=== PATIENT | male | born 1945 | race Caucasian/White ===

== ENCOUNTER 2019-07-16 16:56 | Emergency (ER) | payer MEDICARE, MEDICAID ==
[~2019-07-16] VITALS: Ht 167.6 cm; Wt 112.0 kg
[~2019-07-16 16:56] MED LIST: BUSP15TA4 PO; ENAL20TA77 PO; ESOM40CA2 PO; FENO145T36 PO; FERR325T28 PO; FLUT16SP2 NS; GABA-338 PO; GLIP-126 PO; HYDR-3972 PO; INSU100V15 SQ; ISOS60TA4 PO; SERT-128 PO; TAMS0.4C32 PO; TRAZ-89 PO; [UNRECOGNIZED DRUG - CODE] PO
--- NOTE | 2019-07-16 17:36 | NUR ---
PT TO CT VIA [facility], WITH LARRY CAM
[2019-07-16 18:19] LABS: BASOPHILS % (AUTO) 0.5 % (0-1); EOSINOPHILS # (AUTO) 0.1 X10'3 (0-0.9); EOSINOPHILS % (AUTO) 2.5 % (0-6); HEMOGLOBIN 11.1 g/dl (14.0-17.9); LYMPHOCYTES # (AUTO) 1.1 X10'3 (1.1-4.8); LYMPHOCYTES % (AUTO) 28.1 % (21-51); MEAN CORPUSCULAR HEMOGLOBIN 29.7 PG (27.0-31.0); MEAN CORPUSCULAR HGB CONC 33.6 g/dL (33.0-36.5); MEAN CORPUSCULAR VOLUME 88.6 FL (78-98); MEAN PLATELET VOLUME 7.8 FL (7.4-10.4); MONOCYTES # (AUTO) 0.3 X10'3 (0-0.9); MONOCYTES % (AUTO) 6.5 % (2-12); NEUTROPHILS # (AUTO) 2.5 X10'3 (1.8-7.7); NEUTROPHILS % (AUTO) 62.4 % (42-75); PLATELET COUNT 183 X10'3 (140-440); RED BLOOD COUNT 3.72 X10'6 (4.70-6.10); RED CELL DISTRIBUTION WIDTH 14.2 % (11.5-14.5); WHITE BLOOD COUNT 3.9 X10'3 (4.5-11.0)
[2019-07-16 18:20] LABS: ALBUMIN 4.3 G/DL (3.4-5.0); ANION GAP 6 (8-16); BLOOD UREA NITROGEN 25 MG/DL (7-18); BUN/CREATININE RATIO 14.2 (5.4-32.0); CALCIUM 9.6 MG/DL (8.5-10.1); CHLORIDE 105 MMOL/L (99-107); CREATININE 1.76 MG/DL (0.60-1.10); GLUCOSE 88 MG/DL (70-104); POTASSIUM 4.4 MMOL/L (3.5-5.1); SODIUM 141 MMOL/L (135-145); TOTAL CARBON DIOXIDE 29.6 MMOL/L (24-32); eGFR 38 ML/MIN
[2019-07-16 18:24] LABS: PARTIAL THROMBOPLASTIN TIME 26 SECONDS (22-32)
--- NOTE | 2019-07-16 18:36 | NUR ---
VALERY JIMÉNEZ AT BEDSIDE SUTURING THE LAC TO THE FACE. VERBAL RECEIVED FOR TORADOL 15 MG IV X1 NOW. BP 171/88.
[2019-07-16] MEDS ORDERED: ketorolac trometh. 30mg/ml inj. IV ONE (18:40)
[2019-07-16] MEDS ORDERED: HYDR-3965 PO (19:18)
[2019-07-16 19:49] VITALS: BP 147/83
== END 2019-07-16 19:54 | disposition home or self-care (01) ==
LOC: ER 16:56
DX: S01.81XA Laceration without foreign body of other part of head, initial encounter (principal); S02.2XXA Fracture of nasal bones, initial encounter for closed fracture; I11.0 Hypertensive heart disease with heart failure; I50.9 Heart failure, unspecified; J45.909 Unspecified asthma, uncomplicated; G47.30 Sleep apnea, unspecified; E11.9 Type 2 diabetes mellitus without complications; E03.9 Hypothyroidism, unspecified; M19.90 Unspecified osteoarthritis, unspecified site; Z86.73 Personal history of transient ischemic attack (TIA), and cerebral infarction without residual deficits; Z79.4 Long term (current) use of insulin; Z79.899 Other long term (current) drug therapy; W18.39XA Other fall on same level, initial encounter; Y93.01 Activity, walking, marching and hiking; Y92.89 Other specified places as the place of occurrence of the external cause; Y99.8 Other external cause status
CPT/HCPCS: 36415; 70450; 70486; 72125; 80048; 85025; 85610; 85730; 96374; 99284; J1885

== ENCOUNTER 2020-12-09 10:37 | Day surgery (SDC) | payer MEDICARE, MEDICAID ==
[~2020-12-09] VITALS: Ht 170.2 cm; Wt 106.9 kg
[2020-12-09] VITALS (9 sets, daily range): BP systolic 118–139; BP diastolic 53–72
[~2020-12-09 10:37] MED LIST changes: +FENO145T26 PO; -FENO145T36 PO; -ISOS60TA4 PO; +ISOS60TA71 PO
[2020-12-09] MEDS ORDERED: diphenhydrAMINE 25mg capsule PO PRN (11:05)
[2020-12-09] MEDS ORDERED: normal saline 1,000 ML IV SCH (11:05)
[2020-12-09] MEDS ORDERED: IOHEXOL 350 MG/ML INFUS..BTL 75ML IV ONE (11:32)
[2020-12-09] MEDS ORDERED: heparin 1,000unit/ml 10ml vial 10 ML ONE (11:32)
[2020-12-09] MEDS ORDERED: heparin 1,000 UNITS/NS 500ml 500 ML ONE ×2 (11:32)
[2020-12-09] MEDS ORDERED: iohexol 350MG/ML 100ml bottle IV ONE (11:32)
[2020-12-09] MEDS ORDERED: LIDOcaine 1% (10mg/ml)w/preservative injection 20ml MDV ONE (11:32)
[2020-12-09] MEDS ORDERED: midazolam 1 mg/ML 2ml injection ONE ×2 (11:32→12:48)
[2020-12-09] MEDS ORDERED: fentaNYL/PF 50MCG/1 ML 2ML syringe ONE (11:32)
[2020-12-09 11:51] LABS: BASOPHILS % (AUTO) 1.1 % (0-1); EOSINOPHILS # (AUTO) 0.2 X10'3 (0-0.9); EOSINOPHILS % (AUTO) 5.5 % (0-6); HEMATOCRIT 31.5 % (42.0-52.0); HEMOGLOBIN 10.4 g/dl (14.0-17.9); LYMPHOCYTES # (AUTO) 0.9 X10'3 (1.1-4.8); LYMPHOCYTES % (AUTO) 29.1 % (21-51); MEAN CORPUSCULAR HEMOGLOBIN 28.5 PG (27.0-31.0); MEAN CORPUSCULAR VOLUME 86.4 FL (78-98); MEAN PLATELET VOLUME 7.1 FL (7.4-10.4); MONOCYTES # (AUTO) 0.3 X10'3 (0-0.9); MONOCYTES % (AUTO) 8.9 % (2-12); NEUTROPHILS # (AUTO) 1.7 X10'3 (1.8-7.7); NEUTROPHILS % (AUTO) 55.4 % (42-75); PLATELET COUNT 165 X10'3 (140-440); RED BLOOD COUNT 3.65 X10'6 (4.70-6.10); RED CELL DISTRIBUTION WIDTH 13.9 % (11.5-14.5)
[2020-12-09] MEDS ORDERED: PSYL0.4C2 PO (11:51)
[2020-12-09] MEDS ORDERED: ALBU8HFA PO (11:51)
[2020-12-09] MEDS ORDERED: DOCU-148 PO (11:51)
[2020-12-09] MEDS ORDERED: FENO145T38 PO (11:51)
[2020-12-09] MEDS ORDERED: LORA10CA PO (11:51)
[2020-12-09] MEDS ORDERED: ENAL2.5T40 PO (11:51)
[2020-12-09] MEDS ORDERED: ASPI-1265 PO (11:51)
[2020-12-09] MEDS ORDERED: NITR0.4T48 SL (11:51)
[2020-12-09] MEDS ORDERED: CICL15CR13 TOP (12:01)
[2020-12-09] MEDS ORDERED: FENT-90 TOP (12:01)
[2020-12-09] MEDS ORDERED: ATOR80TA PO (12:01)
[2020-12-09] MEDS ORDERED: CALC950T2 (12:01)
[2020-12-09] MEDS ORDERED: MULT-1085 PO (12:01)
[2020-12-09] MEDS ORDERED: GABA300C PO (12:01)
[2020-12-09] MEDS ORDERED: PANT-47 PO (12:01)
[2020-12-09] MEDS ORDERED: VITC500T PO (12:01)
[2020-12-09 12:08] LABS: ALBUMIN 3.6 G/DL (3.4-5.0); ANION GAP 6 (8-16); BLOOD UREA NITROGEN 37 MG/DL (7-18); BUN/CREATININE RATIO 19.8 (5.4-32.0); CALCIUM 9.4 MG/DL (8.5-10.1); CHLORIDE 104 MMOL/L (99-107); CREATININE 1.87 MG/DL (0.60-1.10); GLUCOSE 119 MG/DL (70-104); MAGNESIUM 1.7 MG/DL (1.5-2.4); POTASSIUM 4.8 MMOL/L (3.5-5.1); SODIUM 138 MMOL/L (135-145); TOTAL CARBON DIOXIDE 28.3 MMOL/L (24-32); eGFR 35 ML/MIN
[2020-12-09] MEDS ORDERED: LACT1CAP92 PO (12:10)
[2020-12-09] MEDS ORDERED: CHOL10006 PO (12:10)
[2020-12-09] MEDS ORDERED: IMIQ1CRE9 TOP (12:10)
[2020-12-09] MEDS ORDERED: DICL100G15 TOP (12:10)
[2020-12-09] MEDS ORDERED: CALC500T11 PO (12:11)
[2020-12-09] MEDS ORDERED: ACET-1025 PO (12:11)
[2020-12-09] MEDS ORDERED: GUAI400T92 PO (12:11)
[2020-12-09] MEDS ORDERED: LIRA0.6P SQ (12:11)
[2020-12-09] MEDS ORDERED: DONE5TAB7 PO (12:11)
[2020-12-09] MEDS ORDERED: DIPH-689 PO (12:18)
[2020-12-09] MEDS ORDERED: OXCA300T4 PO (12:18)
[2020-12-09] MEDS ORDERED: ondansetron/PF 4mg/2ml inj IV PRN (14:05)
[2020-12-09] MEDS ORDERED: normal saline 1000ml 1,000 ML IV SCH (14:05)
[2020-12-09] MEDS ORDERED: HYDROcodone/acetaminophen 10/325mg tab PO PRN (14:05)
[2020-12-09] MEDS ORDERED: proCHLORperazine 10 MG/2 ml inj IV PRN (14:05)
[2020-12-09] MEDS ORDERED: HYDROcodone/acetaminophen 5mg/325mg tablet PO PRN (14:05)
[2020-12-09] MEDS ORDERED: bumetanide 1mg tablet PO ONE (14:30)
== END 2020-12-09 16:30 | disposition home or self-care (01) ==
LOC: SSTAY O 10:37
PROVIDERS: ATTEND Internal Medicine Cardiovascular Disease
DX: R94.39 Abnormal result of other cardiovascular function study (principal); R07.89 Other chest pain; E11.22 Type 2 diabetes mellitus with diabetic chronic kidney disease; I12.9 Hypertensive chronic kidney disease with stage 1 through stage 4 chronic kidney disease, or unspecified chronic kidney disease; N18.4 Chronic kidney disease, stage 4 (severe); G47.30 Sleep apnea, unspecified; D64.9 Anemia, unspecified; E78.5 Hyperlipidemia, unspecified; Z86.73 Personal history of transient ischemic attack (TIA), and cerebral infarction without residual deficits; Z79.899 Other long term (current) drug therapy; Z79.84 Long term (current) use of oral hypoglycemic drugs
CPT/HCPCS: 36415; 80048; 82948; 83735; 85025; 85610; 93005; 93458; 99152; C1760; C1769; C1894; J1644; J2001; J2250; J3010; J7030; Q0163; Q9967; A4620; A6258

== ENCOUNTER 2022-02-06 06:50 | Day surgery (SDC) | payer MEDICARE, MEDICAID ==
[2022-01-30 16:21] LABS: BASOPHILS % (AUTO) 1.1 % (0-1); EOSINOPHILS # (AUTO) 0.1 X10'3 (0-0.9); LYMPHOCYTES # (AUTO) 1.1 X10'3 (1.1-4.8); LYMPHOCYTES % (AUTO) 28.9 % (21-51); MEAN CORPUSCULAR HEMOGLOBIN 28.4 PG (27.0-31.0); MEAN CORPUSCULAR HGB CONC 32.7 g/dL (33.0-36.5); MEAN CORPUSCULAR VOLUME 86.9 FL (78-98); MEAN PLATELET VOLUME 7.1 FL (7.4-10.4); MONOCYTES # (AUTO) 0.2 X10'3 (0-0.9); MONOCYTES % (AUTO) 6.5 % (2-12); NEUTROPHILS # (AUTO) 2.3 X10'3 (1.8-7.7); NEUTROPHILS % (AUTO) 60.5 % (42-75); PRE OP HEMATOCRIT 32.5 % (42.0-52.0); PRE OP PLATELET COUNT 166 X10'3 (140-440); RED BLOOD COUNT 3.74 X10'6 (4.70-6.10); RED CELL DISTRIBUTION WIDTH 14.3 % (11.5-14.5)
[2022-01-30 16:22] LABS: PRE OP HEMOGLOBIN 10.6 g/dL (14.0-17.9)
[2022-01-30 16:27] LABS: ALBUMIN 3.6 G/DL (3.4-5.0); ALBUMIN/GLOBULIN RATIO 1.1 (1.1-1.5); ALKALINE PHOSPHATASE 34 IU/L (46-116); BLOOD UREA NITROGEN 27 MG/DL (7-18); BUN/CREATININE RATIO 16.2 (5.4-32.0); CALCIUM 9.2 MG/DL (8.5-10.1); CHLORIDE 103 MMOL/L (99-107); CREATININE 1.67 MG/DL (0.60-1.10); PRE OP ALT 24 U/L (30-65); PRE OP ANION GAP 7 (8-16); PRE OP AST 21 U/L (10-37); PRE OP BILIRUB, TOTAL 0.3 MG/DL (0.0-1.0); PRE OP POTASSIUM 4.2 MMOL/L (3.4-5.1); PRE OP SODIUM 139 MMOL/L (135-145); TOTAL CARBON DIOXIDE 28.7 MMOL/L (24-32); TOTAL PROTEIN 6.9 G/DL (6.4-8.2); eGFR 40 ML/MIN
[2022-01-30 16:30] LABS: PRE OP GLUCOSE 244 MG/DL (70-104)
[~2022-02-06] VITALS: Ht 170.2 cm; Wt 111.8 kg
[2022-02-06] VITALS (9 sets, daily range): BP systolic 111–148; BP diastolic 66–86
[~2022-02-06 06:50] MED LIST changes: +ATOR80TA PO; +ATOR80TA13 PO; +BUDE10.2 INH; +BUPIVAcaine/PF 7.5mg/ml (0.75%) 10ml vial ONE; +CALC950T2 PO; +CHOL10006 PO; +DIPH-689 PO; +ENAL2.5T40 PO; -ENAL20TA77 PO; -ESOM40CA2 PO; +EZET10TA6 PO; -FENO145T26 PO; +FENO145T38 PO; +FENT-90 TOP; -FLUT16SP2 NS; -GABA-338 PO; +GABA300C PO; -GLIP-126 PO; -HYDR-3972 PO; +LIRA0.6P SQ; +MULT-1085 PO; +OXYB5TAB29 PO; +VITC500T PO; +albuterol 2.5 MG/3 ML nebule NEB PRN; +famotidine 20mg tablet PO ONE; +ringers solution, lacted 1,000 ML IV SCH
[2022-02-06] MEDS ORDERED: LIDOcaine 0.5% (5mg/ml) 50ml vial ONE (07:02)
[2022-02-06] MEDS ORDERED: enalaprilat dihydrate 2.5mg/2ml vial IV PRN (07:25)
[2022-02-06] MEDS ORDERED: morphine 4 MG/ML inj SYRINge IV PRN (07:25)
[2022-02-06] MEDS ORDERED: ringers solution, lacted 1,000 ML IV SCH (07:25)
[2022-02-06] MEDS ORDERED: morphine 2 MG/ML inj. syringe IV PRN (07:25)
[2022-02-06] MEDS ORDERED: fentaNYL/PF 50MCG/1 ML 2ML syringe IV PRN ×2 (07:25)
[2022-02-06] MEDS ORDERED: ondansetron/PF 4mg/2ml inj IV PRN (07:25)
[2022-02-06] MEDS ORDERED: labetalol 20mg/4ml (5mg/ml) syringe IV PRN (07:25)
[2022-02-06] MEDS ORDERED: CEPH250T PO (08:02)
[2022-02-06] MEDS ORDERED: LIDOcaine 1% 30ml preserv. free vial ONE (08:39)
[2022-02-06] MEDS ORDERED: midazolam 1 mg/ML 2ml injection ONE (08:40)
--- NOTE | 2022-02-06 09:31 | NUR ---
Received from OR via [facility], accompanied by Anesthesiologist DR YOON and report given by Anesthesiolgist. PT PRESENTS WITH PIV 20G LEFT HAND, RIGHT HAND DRESSING CCRI, VSS. Addendum: 02/06/22 at 0942 by Chantelle Holloway RN, RN Amended: Links added.
--- NOTE | 2022-02-06 10:47 | NUR ---
I HAVE REVIEWED D/C INSTRUCTIONS WITH PATIENT AND THEY HAVE VERBALIZED UNDERSTANDING OF INSTRUCTIONS. PATIENT D/C HOME WITH ALL BELONGINGS AND FAMILY GAVE TRANSPORT Addendum: 02/06/22 at 1134 by Chantelle Holloway RN, RN Amended: Links added.
== END 2022-02-06 10:41 | disposition home or self-care (01) ==
LOC: PAS 06:50
PROVIDERS: ATTEND Orthopaedic Surgery Hand Surgery
DX: M65.351 Trigger finger, right little finger (principal); M65.331 Trigger finger, right middle finger; J45.909 Unspecified asthma, uncomplicated; G47.30 Sleep apnea, unspecified; E11.22 Type 2 diabetes mellitus with diabetic chronic kidney disease; I13.0 Hypertensive heart and chronic kidney disease with heart failure and stage 1 through stage 4 chronic kidney disease, or unspecified chronic kidney disease; N18.9 Chronic kidney disease, unspecified; I50.9 Heart failure, unspecified; M19.90 Unspecified osteoarthritis, unspecified site; N40.0 Benign prostatic hyperplasia without lower urinary tract symptoms; F32.A Depression, unspecified; E66.9 Obesity, unspecified; Z68.37 Body mass index [BMI] 37.0-37.9, adult; Z79.4 Long term (current) use of insulin; Z79.899 Other long term (current) drug therapy
CPT/HCPCS: 26055; 36415; 71046; 80053; 82948; 85025; J0690; J2250; J3490; J7030; J7060; J7120; Z7506; Z7512; A4215; A4618; A6449

== ENCOUNTER 2024-09-29 11:36 | Outpatient (CLI) | payer MEDICARE, MEDICAID ==
[~2024-09-29 11:36] MED LIST changes: -ATOR80TA PO; -BUPIVAcaine/PF 7.5mg/ml (0.75%) 10ml vial ONE; +CEPH250T PO; -albuterol 2.5 MG/3 ML nebule NEB PRN; -famotidine 20mg tablet PO ONE; -ringers solution, lacted 1,000 ML IV SCH
== END 2024-09-29 23:59 | disposition home or self-care (01) ==
LOC: RAD 11:36
PROVIDERS: ATTEND Family Medicine
DX: R13.10 Dysphagia, unspecified (principal); R47.02 Dysphasia; Z79.899 Other long term (current) drug therapy
CPT/HCPCS: 74230

== ENCOUNTER 2024-12-28 11:55 | Emergency (ER) | payer MEDICARE, MEDICAID ==
[~2024-12-28] VITALS: Ht 167.6 cm; Wt 104.5 kg
[2024-12-28 11:56] VITALS: BP 105/48; PULSE 60; RESP 15; O2SAT 95
[2024-12-28] MEDS: normal saline 1000ml 1,000 ML IV ONE (13:23)
[2024-12-28] MEDS: bacitracin 15gm ointment TP STA (13:49)
[2024-12-28] MEDS ORDERED: MECL-302 PO (15:05)
[2024-12-28 15:12] VITALS: TEMP 97.7
== END 2024-12-28 15:15 | disposition home or self-care (01) ==
LOC: ER 11:55
DX: S50.12XA Contusion of left forearm, initial encounter (principal); R11.2 Nausea with vomiting, unspecified; E86.0 Dehydration; E03.9 Hypothyroidism, unspecified; E11.9 Type 2 diabetes mellitus without complications; G47.30 Sleep apnea, unspecified; I11.0 Hypertensive heart disease with heart failure; I50.9 Heart failure, unspecified; J45.909 Unspecified asthma, uncomplicated; M19.90 Unspecified osteoarthritis, unspecified site; Z85.820 Personal history of malignant melanoma of skin; Z86.73 Personal history of transient ischemic attack (TIA), and cerebral infarction without residual deficits; W18.30XA Fall on same level, unspecified, initial encounter; Y93.89 Activity, other specified; Y92.89 Other specified places as the place of occurrence of the external cause; Y99.8 Other external cause status
CPT/HCPCS: 96360; 99283; J7030

== ENCOUNTER → 2025-01-11 | Outpatient (CLI) | payer MEDICARE, MEDICAID ==
[~2025-01-11] MED LIST changes: +MECL-302 PO
--- NOTE | 2025-01-11 10:59 | RADIOLOGY REPORT ---
EXAM: CT CT HEAD; DATE: 01/11/2025 10:14 AM HISTORY: GAIT DISTURBANCE COMPARISON: None TECHNIQUE: Axial images were obtained and reformatted in coronal and sagittal planes. All CT scans at this medical facility are performed using dose modulation techniques as appropriate to a performed e xam including the following: Automated exposure control was utilized; adjustment of the MA and/or KV according to patient size; and use of iterative reconstruction technique. CT Dose: CTDI volume is 70 mGy. Dose-length product is 12 90 mGy*cm FINDINGS: Supratentorial Region: No evidence for large acute territorial ischemia. No intracranial hemorrhage is noted. Confluent white matter hypoattenuating foci are noted bilaterally, which typically reflect chronic microvascular ischemic changes. Posterior Fossa: A 1 cm density seen in the right cerebellar lobe subcortical white matter without va sogenic edema or mass effect that may represent dystrophic calcification or hemorrhage. Brainstem: Unremarkable. Sellar/Suprasellar Region: Unremarkable. Ventricles, Cisterns, Sulci: Age-appropriate. Orbits: Unremarkable. Paranasal Sinuses: Unremarkable. Mastoid Air Cells: Unremarkable. Vasculature: Unremarkable. Bones/Soft Tissues: No acute abnormality. Other: None. IMPRESSION: 1. A 1 cm density seen in the right cerebral subcortical white matter without vasogenic edema or mass effect that may represent chronic dystrophic calcification or parenchymal hemorrhage. Recommend gris elation with focal findings further evaluated with MRI or follow-up by CT scan in 6-8 hours to ensure no progression. No prior studies available for comparison. 2. Mild global cortical atrophy and moderate chronic microvascular ischemic changes. We have been trying to get in touch with referring clinician for the past 15 minutes and there has be en no success. .
--- NOTE | 2025-01-11 12:13 | RADIOLOGY REPORT ---
EXAM: CT CT CERVICAL SPINE INDICATION: GAIT DISTURBANCE EXAM DATE: 01/11/2025 10:16 AM COMPARISON: None TECHNIQUE: Multiple axial CT images of the cervical spine were obtained using bone algorithm. Sagitta l and coronal reformatting was done. Bone and soft tissue windows were reviewed. Radiation Dose Information: CT Dose: CTDI volume is 29.6 mGy. Dose-length product is 712.8 mGy*cm FINDINGS: The cervical alignment is intact. Reversal of the cervical lordosis. There is a neurostimulator in t he thecal sac extending from the posterior aspect of the C2 to the C6 level. No acute cervical spine fracture is identified. The vertebral body heights are intact. No suspicious osseous lesions are iden tified. Multilevel intervertebral disc space narrowing. No significant spinal stenosis. Multilevel neural fo raminal stenosis. There is no prevertebral soft tissue swelling. Calcification in the left pinna. Visualized lung apices are clear. IMPRESSION: 1. No evidence of acute cervical spine fracture or traumatic malalignment. All CT scans at this medical facility are performed using dose modulation techniques as appropriate t o a performed exam including the following: Automated exposure control was utilized; adjustment of th e MA and/or KV according to patient size; and use of iterative reconstruction technique.
== END | disposition home or self-care (01) ==
LOC: RAD 09:59
PROVIDERS: ATTEND Neuromusculoskeletal Medicine & OMM
DX: I67.82 Cerebral ischemia (principal); M48.02 Spinal stenosis, cervical region; R90.82 White matter disease, unspecified; G31.9 Degenerative disease of nervous system, unspecified; R26.9 Unspecified abnormalities of gait and mobility
CPT/HCPCS: 70450; 72125

== ENCOUNTER 2025-01-18 16:44 | Emergency (ER) | payer MEDICARE, MEDICAID ==
--- NOTE | 2025-01-18 16:59 | ELECTROCARDIOGRAPH REPORT ---
[facility] Test Date: 2025-01-18 Test Time: 16:57:04 Pat Name: DOYLE VELASCO Department: [facility]- Patient ID: [facility]-[id number] Room: Gender: M Home Theatre Technician: : 1945 Requested By: JOSEPH DISLA Order Number: [id number] Reading MD: Dr. Dhiraj Khan Measurements Intervals [place] Rate: 76 P: 0 WI: 0 QRS: 18 QRSD: 115 T: 86 QT: 400 QTc: 450 Interpretive Statements Atrial fibrillation Right bundle branch block Low voltage, precordial leads Nonspecific T abnormalities, lateral leads Artifact in lead(s) I and baseline wander in lead(s) V4,V5,V6 Electronically Signed On 01-18-2025 20:38:[address] Dhiraj Khan Please click the below link to view image of tracing.
[2025-01-18 17:12] LABS: BASOPHILS % (AUTO) 0.7 % (0-1); EOSINOPHILS # (AUTO) 0.1 X10'3 (0-0.9); EOSINOPHILS % (AUTO) 1.3 % (0-6); HEMATOCRIT 32.8 % (42.0-52.0); HEMOGLOBIN 11.1 g/dl (14.0-17.9); LYMPHOCYTES # (AUTO) 1.3 X10'3 (1.1-4.8); LYMPHOCYTES % (AUTO) 28.2 % (21-51); MEAN CORPUSCULAR HGB CONC 33.8 g/dL (33.0-36.5); MEAN CORPUSCULAR VOLUME 82.9 FL (78-98); MEAN PLATELET VOLUME 6.8 FL (7.4-10.4); MONOCYTES # (AUTO) 0.3 X10'3 (0-0.9); MONOCYTES % (AUTO) 6.8 % (2-12); NEUTROPHILS # (AUTO) 2.9 X10'3 (1.8-7.7); PLATELET COUNT 247 X10'3 (140-440); RED BLOOD COUNT 3.96 X10'6 (4.70-6.10); RED CELL DISTRIBUTION WIDTH 15.2 % (11.5-14.5); WHITE BLOOD COUNT 4.6 X10'3 (4.5-11.0)
[2025-01-18 17:27] LABS: ALANINE AMINOTRANSFERASE 33 U/L (12-78); ALBUMIN 3.5 G/DL (3.4-5.0); ALBUMIN/GLOBULIN RATIO 1.1 (1.1-1.5); ALKALINE PHOSPHATASE 28 IU/L (46-116); ANION GAP 4 (8-16); ASPARTATE AMINO TRANSFERASE 30 U/L (10-37); BILIRUBIN,TOTAL 0.3 MG/DL (0.1-1.0); BLOOD UREA NITROGEN 22 MG/DL (7-18); BUN/CREATININE RATIO 15.3 (10.0-20.0); CALCIUM 8.7 MG/DL (8.5-10.1); CHLORIDE 94 MMOL/L (99-107); CREATININE 1.44 MG/DL (0.60-1.10); GLUCOSE 162 MG/DL (70-104); POTASSIUM 4.1 MMOL/L (3.5-5.1); SODIUM 127 MMOL/L (135-145); TOTAL PROTEIN 6.6 G/DL (6.4-8.2); eGFR 47 ML/MIN
--- NOTE | 2025-01-18 17:28 | RADIOLOGY REPORT ---
CLINICAL INDICATION: ANKLE PAIN TECHNIQUE: DI ANKLE, COMPLETE(3VW MIN) Comparison: None FINDINGS/IMPRESSION: : Comminuted and minimally displaced fracture of the distal fibula with intra-articular extension. Ankle mortise is intact. Diffuse soft-tissue swelling. Vascular calcifications are present.
--- NOTE | 2025-01-18 17:29 | RADIOLOGY REPORT ---
CHEST RADIOGRAPH Indication: CP Technique: Single frontal view of the chest was obtained COMPARISON: None FINDINGS: Lines and Tubes: None Lungs: Clear Pleura: No effusion. No pneumothorax. Cardiomediastinal contours: Unremarkable Bones: Unremarkable IMPRESSION: No acute disease.
[2025-01-18 17:34] LABS: PRO BRAIN NATRIURETIC PEPTIDE 777 PG/ML (0-450)
--- NOTE | 2025-01-18 19:49 | Physician Documentation ---
History of Present Illness ~ Chief Complaint: Mechanical Fall Stated Complaint: FALL Time Seen by MD: 17:28 Primary Medical Doctor: SASKIA KWONG Patient is seen today with complaints of sustaining a ground level fall where he lost his balance and fell backwards but was luckily caught by his caregiver. There was no head strike and no loss of consciousness. Patient did rolled his left ankle and has left ankle pain. They have no other concern or complaint at this time. Patient currently denies any chest pain or shortness of breath or abdominal pain or nausea, vomiting, diarrhea. Patient does currently have an electric wheelchair at home and uses a walker usually. Patient has history of vertigo. Tetanus within 5 Years?: No (2015) Medication Reconciliation Allergies: Coded Allergies: No Known Allergies (Unverified , 03/30/14) Scheduled Ascorbic Acid* (Vitamin C*), 1 TAB PO DAILY, (Reported) Atorvastatin Calcium (Lipitor), 1 TAB PO DAILY, (Reported) Budesonide/Formoterol Fumarate (Symbicort 160-4.5 Mcg Inhaler), Unknown Dose INH Q12H, (Reported) Buspirone Hcl (Buspirone Hcl), 30 MG PO BID, (Reported) Calcium Citrate (Calcitrate), 1,900 MG PO DAILY, (Reported) Cephalexin*Monohydrate* (Keflex*), 1 CAP PO Q6H, (Reported) Cholecalciferol (Vitamin D), 1 CAP PO DAILY, (Reported) Diphenhydramine Hcl (Zzzquil), 25 MG PO DAILY, (Reported) Enalapril Maleate* (Vasotec*), 1 TAB PO DAILY, (Reported) Ezetimibe (Zetia), 1 TAB PO DAILY, (Reported) Fenofibrate Nanocrystallized* (Tricor*), 145 MG PO DAILY, (Reported) Fentanyl Patch 12 MCG* (Duragesic 12 MCG*), 1 PATCH TOP Q72H, (Reported) Ferrous Sulfate* (Ferrous Sulfate*), 1 TAB PO DAILY, (Reported) Gabapentin (Neurontin), 600 MG PO BID, (Reported) Insulin Glargine,Hum.rec.anlog (Lantus), 40 UNIT SQ HS, (Reported) Isosorbide Mononitrate (Isosorbide Mononitrate Er), 90 MG PO DAILY, (Reported) Liraglutide (Victoza), 1.2 MG SQ HS, (Reported) Meclizine HCl (Meclizine HCl), 1 TAB PO TID PRN, (Reported) Multivitamin (Multi Vitamin Daily), 1 TAB PO DAILY, (Reported) Oxybutynin Chloride (Ditropan Xl), 1 TAB PO DAILY, (Reported) Polyethylene Glycol 3350 (Glycolax), 17 GM PO DAILY, (Reported) Sertraline Hcl (Zoloft), 1.5 TAB PO DAILY, (Reported) Tamsulosin Hcl (Tamsulosin Hcl), 0.8 MG PO HS, (Reported) Trazodone Hcl (Trazodone Hcl), 100 MG PO BID, (Reported) Discontinued Medications Meclizine HCl (Meclizine HCl), 1 TAB PO TID PRN Discontinued Reason: Other Past Medical History Past Medical History: CVA/TIA/Stroke, Congestive Heart Failure, Hypertension, Asthma, Sleep Apnea, Diabetes, Hypothyroidism, Arthritis, Basal Cell, Melanoma Past Surgical History: no surgical history Lives with: Other Lives In: Home Review of Systems Constitutional: Denies: chills, fever, weakness Eyes: Denies: pain, blurred vision ENT: Denies: ear pain, nose pain, throat pain, mouth pain Respiratory: Denies: cough, shortness of breath Cardiovascular: Denies: chest pain, palpitations Gastrointestinal: Denies: abdominal pain, nausea, vomiting Genitourinary: Denies: burning, dysuria Male Genitalia: Denies: penile discharge, testicular pain Neurological: Denies: headache, dizziness Musculoskeletal: Denies: pain, swelling Integumentary: Denies: rash, lesions Allergic/Immunologic: Denies: hives, itching Hematologic/Lymphatic: Denies: no symptoms reported Psychiatric: Denies: depression, anxiety Physical Exam Vital Signs: Temperature: 99.2, Source: Oral, Heart Rate: 68, Respiratory Rate: 16, BP: 117/54, Pulse Oximetry: 97 Oxygen Flow Rate: 0 Physical Exam General: Awake and Alert, no acute distress. HEENT: Conjunctiva pink, Sclera clear, Mucus Membranes moist. Neck: Supple without masses and tenderness. Resp: Unlabored. Lungs clear to auscultation bilaterally. Heart: Regular Rate and rhythm, normal S1 and S2 without murmur, rub or gallop. Musculoskeletal: Patient on exam does have significant tenderness to palpation to the lateral malleoli of the left lower leg. Patient does have swelling and ecchymosis noted. Patient has decreased range of motion due to pain of left ankle. Neurovascularly intact distally. Motor function intact distally. Extremities: No cyanosis,clubbing or edema. Skin: Warm and Dry. Progress Results/Orders Results/Orders Orders - ZAY COLON PAC Ortho Orders (01/18/25 ) Ortho Orders (01/18/25 ) Vital Signs 01/18/25 01/18/25 01/18/25 01/18/25 16:48 20:20 20:26 21:21 Temp 99.2 99.2 Pulse 68 68 65 Resp 16 18 16 B/P (MAP) 117/54 116/59 (78) 113/51 Pulse Ox 97 96 96 O2 Flow Rate 0 0 Laboratory Tests Test 01/18/25 16:59 01/18/25 19:01 White Blood Count 4.6 Red Blood Count 3.96 L Hemoglobin 11.1 L Hematocrit 32.8 L Mean Corpuscular Volume 82.9 Mean Corpuscular Hemoglobin 28.0 Mean Corpuscular Hemoglobin Concent 33.8 Red Cell Distribution Width 15.2 H Platelet Count 247 Mean Platelet Volume 6.8 L Neutrophils (%) (Auto) 63.0 Lymphocytes (%) (Auto) 28.2 Monocytes (%) (Auto) 6.8 Eosinophils (%) (Auto) 1.3 Basophils (%) (Auto) 0.7 Neutrophils # (Auto) 2.9 Lymphocytes # (Auto) 1.3 Monocytes # (Auto) 0.3 Eosinophils # (Auto) 0.1 Basophils # (Auto) 0.0 CBC Comment Sodium Level 127 L Potassium Level 4.1 Chloride Level 94 L Carbon Dioxide Level 29.0 Anion Gap 4 L Blood Urea Nitrogen 22 H Creatinine 1.44 H Estimated GFR/1.73 m2 47 BUN/Creatinine Ratio 15.3 Glucose Level 162 H Calcium Level 8.7 Total Bilirubin 0.3 Aspartate Amino Transf (AST/SGOT) 30 Alanine Aminotransferase (ALT/SGPT) 33 Alkaline Phosphatase 28 L Troponin I High Sensitivity 20 16 Pro-B-Type Natriuretic Peptide 777 H Total Protein 6.6 Albumin 3.5 Globulin 3.1 Albumin/Globulin Ratio 1.1 Chemistry Comments Troponin I High Sens Percent Delta 20 Troponin I Hi Sens Absolute Change -4 EKG/XRAY/CT/US/VASC/MRI Chest X-Ray : Additional Comments Chest x-ray interpreted by myself today shows no large infiltrate, no large effusion, normal mediastinum. DIAGNOSTIC RADIOLOGY Patient: DOYLE VELASCO Medical Record: [id number] [facility] : 1945, Age: 79 Sex: Male Location: ER Patient Status: [facility] ER Service Date/Time: 01/18/251651 Ordering Physician: JOSEPH DISLA MD Exam: CHEST,SINGLE VIEW CHEST RADIOGRAPH Indication: CP Technique: Single frontal view of the chest was obtained COMPARISON: None FINDINGS: Lines and Tubes: None Lungs: Clear Pleura: No effusion. No pneumothorax. Cardiomediastinal contours: Unremarkable Bones: Unremarkable IMPRESSION: No acute disease. Electronically Signed by:PIERO MCLAIN MD Date & Time: 01/18/251725 Dictated by: PIERO MCLAIN MD Dictation date and time: 01/18/251725 Primary Care Provider: NO PRIMARY CARE PROVIDER cc: JOSEPH DISLA MD ~ Bone/Soft Tissue X-Ray (Ext.) : Additional Comment X-ray of left ankle interpreted by myself today does show comminuted, minimally displaced fracture of the left distal fibula with intra-articular extension. The ankle mortise is intact. DIAGNOSTIC RADIOLOGY Patient: DOYLE VELASCO Medical Record: [id number] : 1945, Age: 79 Sex: Male Location: ER Patient Status: REG ER Service Date/Time: 01/18/251651 Ordering Physician: JOSEPH DISLA MD Exam: ANKLE, COMPLETE(3VW MIN) CLINICAL INDICATION: ANKLE PAIN TECHNIQUE: DI ANKLE, COMPLETE(3VW MIN) Comparison: None FINDINGS/IMPRESSION: : Comminuted and minimally displaced fracture of the distal fibula with intra- articular extension. Ankle mortise is intact. Diffuse soft-tissue swelling. Vascular calcifications are present. Electronically Signed by:PIERO MCLAIN MD Date & Time: 01/18/251725 Dictated by: PIERO MCLAIN MD Dictation date and time: 01/18/251725 Primary Care Provider: NO PRIMARY CARE PROVIDER cc: JOSEPH DISLA MD ~ Medical Decision Making Findings Patient is seen today with complaints of sustaining a ground level fall where he lost his balance and fell backwards but was luckily caught by his caregiver. There was no head strike and no loss of consciousness. Patient did rolled his left ankle and has left ankle pain. They have no other concern or complaint at this time. Patient currently denies any chest pain or shortness of breath or abdominal pain or nausea, vomiting, diarrhea. Patient does currently have an electric wheelchair at home and uses a walker usually. Patient has history of vertigo. Patient did have x-ray of left ankle that did show comminuted mildly displaced fracture of the left distal fibula with possible joint involvement. The ankle mortise is intact. I did recommend to patient to follow up with Orthopedics as soon as possible for further eval and treatment. Patient was placed in a walking boot/splint. Patient will return to ED with any worsening, concerning or changing symptoms. Departure Disposition: HOME / SELF CARE / HOMELESS (ERASED) Impression: Primary Impression: Fracture of distal fibula Qualified Codes: S82.832A - Other fracture of upper and lower end of left fibula, initial encounter for closed fracture Condition: Improved Discharge Instructions: Ankle Fracture, [id number], Fall Prevention in the Home, Adult, [id number] Additional Instructions: Patient did have x-ray of left ankle that did show comminuted mildly displaced fracture of the left distal fibula with possible joint involvement. The ankle mortise is intact. I did recommend to patient to follow up with Orthopedics as soon as possible for further eval and treatment. Patient was placed in a walking boot/splint. Patient will return to ED with any worsening, concerning or changing symptoms. Referrals: NO PRIMARY CARE PROVIDER (PCP) Signature Scribe Signature: No scribe Attestation: No scribe ZAY COLON PAC January 18, 2025 19:49
[2025-01-18] MEDS ORDERED: MECL-302 PO (20:18)
[2025-01-18 20:20] VITALS: TEMP 99.2
[2025-01-18 21:21] VITALS: BP 113/51; PULSE 65; RESP 16; O2SAT 96
== END 2025-01-18 21:23 | disposition home or self-care (01) ==
LOC: ER 16:45
DX: S82.832A Other fracture of upper and lower end of left fibula, initial encounter for closed fracture (principal); I11.0 Hypertensive heart disease with heart failure; I50.9 Heart failure, unspecified; E11.9 Type 2 diabetes mellitus without complications; E03.9 Hypothyroidism, unspecified; G47.30 Sleep apnea, unspecified; I48.91 Unspecified atrial fibrillation; J45.909 Unspecified asthma, uncomplicated; M19.90 Unspecified osteoarthritis, unspecified site; Z86.73 Personal history of transient ischemic attack (TIA), and cerebral infarction without residual deficits; Z79.899 Other long term (current) drug therapy; W18.39XA Other fall on same level, initial encounter; Y93.89 Activity, other specified; Y92.89 Other specified places as the place of occurrence of the external cause; Y99.8 Other external cause status
CPT/HCPCS: 36415; 71045; 73610; 80053; 83880; 84484; 85025; 93005; 99285; L4360

== ENCOUNTER 2025-05-14 10:46 | Emergency (ER) | payer MEDICARE, MEDICAID ==
[~2025-05-14] VITALS: Ht 170.2 cm; Wt 107.3 kg
[2025-05-14 10:54] VITALS: TEMP 98.5
[2025-05-14 11:39] LABS: MEAN PLATELET VOLUME 7.6 FL (7.4-10.4); RED CELL DISTRIBUTION WIDTH 14.7 % (11.5-14.5)
[2025-05-14 11:56] LABS: CREATININE 1.43 MG/DL (0.60-1.10); TOTAL CARBON DIOXIDE 28.7 MMOL/L (24-32); eCRCL 38 ML/MIN; eGFR 47 ML/MIN
[2025-05-14 12:03] LABS: PRO BRAIN NATRIURETIC PEPTIDE 2487 PG/ML (0-450)
--- NOTE | 2025-05-14 14:44 | Physician Documentation ---
History of Present Illness ~ Chief Complaint: Extremity Swelling Stated Complaint: LEG PAIN Time Seen by MD: 14:07 Primary Medical Doctor: SASKIA KWONG Mode of Arrival: POV, Ambulatory HPI Patient is seen today with complaints of leg swelling that him and his caregiver have noticed off and on that seems to be getting worse over the last few months. Patient does have a history of congestive heart failure. They state the swelling is in both legs. Patient currently denies any significant shortness of breath or chest pain or abdominal pain or nausea, vomiting, diarrhea. Patient has no new or other concern or complaint at this time. Tetanus witin 5 years: No (2015) Medication Reconciliation Allergies: Coded Allergies: latex (Verified Allergy, Unknown, 05/14/25) Scheduled Ascorbic Acid* (Vitamin C*), 1 TAB PO DAILY, (Reported) Atorvastatin Calcium (Lipitor), 1 TAB PO DAILY, (Reported) Budesonide/Formoterol Fumarate (Symbicort 160-4.5 Mcg Inhaler), Unknown Dose INH Q12H, (Reported) Buspirone Hcl (Buspirone Hcl), 30 MG PO BID, (Reported) Calcium Citrate (Calcitrate), 1,900 MG PO DAILY, (Reported) Cephalexin*Monohydrate* (Keflex*), 1 CAP PO Q6H, (Reported) Cholecalciferol (Vitamin D), 1 CAP PO DAILY, (Reported) Diphenhydramine Hcl (Zzzquil), 25 MG PO DAILY, (Reported) Enalapril Maleate* (Vasotec*), 1 TAB PO DAILY, (Reported) Ezetimibe (Zetia), 1 TAB PO DAILY, (Reported) Fenofibrate Nanocrystallized* (Tricor*), 145 MG PO DAILY, (Reported) Fentanyl Patch 12 MCG* (Duragesic 12 MCG*), 1 PATCH TOP Q72H, (Reported) Ferrous Sulfate* (Ferrous Sulfate*), 1 TAB PO DAILY, (Reported) Gabapentin (Neurontin), 600 MG PO BID, (Reported) Insulin Glargine,Hum.rec.anlog (Lantus), 40 UNIT SQ HS, (Reported) Isosorbide Mononitrate (Isosorbide Mononitrate Er), 90 MG PO DAILY, (Reported) Liraglutide (Victoza), 1.2 MG SQ HS, (Reported) Meclizine HCl (Meclizine HCl), 1 TAB PO TID PRN, (Reported) Multivitamin (Multi Vitamin Daily), 1 TAB PO DAILY, (Reported) Oxybutynin Chloride (Ditropan Xl), 1 TAB PO DAILY, (Reported) Polyethylene Glycol 3350 (Glycolax), 17 GM PO DAILY, (Reported) Sertraline Hcl (Zoloft), 1.5 TAB PO DAILY, (Reported) Tamsulosin Hcl (Tamsulosin Hcl), 0.8 MG PO HS, (Reported) Trazodone Hcl (Trazodone Hcl), 100 MG PO BID, (Reported) Past Medical History Past Medical History: CVA/TIA/Stroke, Congestive Heart Failure, Hypertension, Asthma, Sleep Apnea, Diabetes, Hypothyroidism, Arthritis, Basal Cell, Melanoma Past Surgical History: no surgical history Lives with: Other Lives In: Home Review of Systems Constitutional: Denies: chills, fever, weakness Eyes: Denies: pain, blurred vision ENT: Denies: ear pain, nose pain, throat pain, mouth pain Respiratory: Denies: cough, shortness of breath Cardiovascular: Denies: chest pain, palpitations Gastrointestinal: Denies: abdominal pain, nausea, vomiting Genitourinary: Denies: burning, dysuria Male Genitalia: Denies: penile discharge, testicular pain Neurological: Denies: headache, dizziness Musculoskeletal: Denies: pain, swelling Integumentary: Denies: rash, lesions Allergic/Immunologic: Denies: hives, itching Hematologic/Lymphatic: Denies: no symptoms reported Psychiatric: Denies: depression, anxiety Physical Exam Vital Signs: Temperature: 98.5, Source: Temporal, Heart Rate: 82, Respiratory Rate: 15, BP: 119/69, Pulse Oximetry: 93, Weight: 107.270 Oxygen Flow Rate: 0 Physical Exam General: Awake and Alert, no acute distress. HEENT: Conjunctiva pink, Sclera clear, Mucus Membranes moist. Neck: Supple without masses and tenderness. Resp: Unlabored. Lungs clear to auscultation bilaterally. Heart: Regular Rate and rhythm, normal S1 and S2 without murmur, rub or gallop. Abdomen: Soft and non tender no organomegaly Extremities: No cyanosis,clubbing patient does have 2+ pitting edema of the bilateral lower extremities. Skin: Warm and Dry. Progress Results/Orders Results/Orders Vital Signs 05/14/25 05/14/25 05/14/25 10:54 12:36 12:37 Temp 98.5 Pulse 111 82 Resp 16 16 15 B/P (MAP) 119/69 (86) Pulse Ox 96 93 O2 Flow Rate 0 Laboratory Tests Test 05/14/25 11:25 White Blood Count 3.1 L Red Blood Count 3.73 L Hemoglobin 10.8 L Hematocrit 32.3 L Mean Corpuscular Volume 86.5 Mean Corpuscular Hemoglobin 29.1 Mean Corpuscular Hemoglobin Concent 33.6 Red Cell Distribution Width 14.7 H Platelet Count 138 L Mean Platelet Volume 7.6 Neutrophils (%) (Auto) 65.2 Lymphocytes (%) (Auto) 25.7 Monocytes (%) (Auto) 6.4 Eosinophils (%) (Auto) 2.1 Basophils (%) (Auto) 0.6 Neutrophils # (Auto) 2.0 Lymphocytes # (Auto) 0.8 L Monocytes # (Auto) 0.2 Eosinophils # (Auto) 0.1 Basophils # (Auto) 0.0 CBC Comment Sodium Level 137 Potassium Level 4.5 Chloride Level 101 Carbon Dioxide Level 28.7 Anion Gap 7 L Blood Urea Nitrogen 20 H Creatinine 1.43 H Estimated GFR/1.73 m2 47 BUN/Creatinine Ratio 14.0 Glucose Level 241 H Calcium Level 8.7 Total Bilirubin 0.4 Aspartate Amino Transf (AST/SGOT) 24 Alanine Aminotransferase (ALT/SGPT) 24 Alkaline Phosphatase 32 L Pro-B-Type Natriuretic Peptide 2487 H Total Protein 6.7 Albumin 3.3 L Globulin 3.4 Albumin/Globulin Ratio 1.0 L Chemistry Comments Medical Decision Making Findings Patient is seen today with complaints of leg swelling that him and his caregiver have noticed off and on that seems to be getting worse over the last few months. Patient does have a history of congestive heart failure. They state the swelling is in both legs. Patient currently denies any significant shortness of breath or chest pain or abdominal pain or nausea, vomiting, diarrhea. Patient has no new or other concern or complaint at this time. Patient did refuse admission to the hospital for further eval and treatment of his acute on chronic congestive heart failure. Patient did have labs drawn today which show no significant changes of his chronic kidney disease. Patient however does have elevated pro BNP compared to previous lab draws. Patient states he was taken off his Lasix because of his kidney function. Patient states he does have appointment this week with his eyelet operator. Patient will follow up with eyelet operator as soon as possible. Patient was given prescription for Lasix 40 mg one tab by mouth in the morning along with potassium tablets. Return to ED with any worsening, concerning or changing symptoms. Departure Disposition: HOME / SELF CARE / HOMELESS Impression: Primary Impression: Edema of lower extremity Additional Impression: Acute on chronic congestive heart failure Qualified Codes: I50.9 - Heart failure, unspecified Condition: Stable Discharge Instructions: Heart Failure Exacerbation Additional Instructions: Patient did refuse admission to the hospital for further eval and treatment of his acute on chronic congestive heart failure. Patient did have labs drawn today which show no significant changes of his chronic kidney disease. Patient however does have elevated pro BNP compared to previous lab draws. Patient states he was taken off his Lasix because of his kidney function. Patient states he does have appointment this week with his eyelet operator. Patient will follow up with eyelet operator as soon as possible. Patient was given prescription for Lasix 40 mg one tab by mouth in the morning along with potassium tablets. Return to ED with any worsening, concerning or changing symptoms. Referrals: NO PRIMARY CARE PROVIDER (PCP) Prescriptions Potassium Chloride (Klor-Con 8) 8 Meq Tablet.er 1 TAB PO DAILY for 30 Days, #30 TAB 0 Refills Prov: ZAY COLON 05/14/25 Furosemide (LASIX) 40 Mg Tablet 1 TAB PO DAILY for 7 Days, #7 TAB 0 Refills Prov: ZAY COLON 05/14/25 Additional Comment Additional Comment Patient refused admission today. Signature Scribe Signature: No scribe Attestation: No scribe ZAY COLON May 14, 2025 14:44
[2025-05-14] MEDS ORDERED: FURO-149 PO (14:57)
[2025-05-14] MEDS ORDERED: POTA8TAB69 PO (14:58)
[2025-05-14 15:18] VITALS: BP 128/89; PULSE 71; RESP 16; O2SAT 94
== END 2025-05-14 15:18 | disposition home or self-care (01) ==
LOC: ER 10:47
DX: R60.0 Localized edema (principal); I11.0 Hypertensive heart disease with heart failure; I50.9 Heart failure, unspecified; E03.9 Hypothyroidism, unspecified; E11.9 Type 2 diabetes mellitus without complications; G47.30 Sleep apnea, unspecified; J45.909 Unspecified asthma, uncomplicated; M19.90 Unspecified osteoarthritis, unspecified site; Z86.73 Personal history of transient ischemic attack (TIA), and cerebral infarction without residual deficits; Z88.8 Allergy status to other drugs, medicaments and biological substances
CPT/HCPCS: 36415; 80053; 83880; 85025; 99283

== ENCOUNTER 2025-07-09 09:45 | Day surgery (SDC) | payer MEDICARE, MEDICAID ==
[~2025-07-09] VITALS: Ht 170.2 cm; Wt 106.7 kg
[~2025-07-09 09:45] MED LIST changes: +FURO-149 PO; +POTA8TAB69 PO; +amiodarone 50MG/ML inj IV ONE; +atropine 0.1mg/ml 10ml syringe ONE; +fentaNYL/PF 50MCG/1 ML 2ML syringe ONE; +midazolam 1 mg/ML 2ml injection ONE
[2025-07-09 10:00] VITALS: RESP 15
--- NOTE | 2025-07-09 10:10 | ELECTROCARDIOGRAPH REPORT ---
[facility] Test Date: 2025-07-09 Test Time: 10:06:41 Pat Name: DOYLE VELASCO Department: [facility] Patient ID: [facility]-[id number] Room: Gender: M Transportation Analyst: : 1945 Requested By: LUIS PATTERSON Order Number: [id number] Reading MD: Dr. COLLEEN Coleman Measurements Intervals [place] Rate: 103 P: 0 NE: 0 QRS: 56 QRSD: 111 T: 77 QT: 397 QTc: 520 Interpretive Statements Atrial fibrillation Low voltage, extremity and precordial leads Prolonged QT interval Electronically Signed On 07-09-2025 15:43:[address] COLLEEN Coleman Please click the below link to view image of tracing.
[2025-07-09] MEDS ORDERED: fentaNYL/PF 50MCG/1 ML 2ML syringe IV ONE (10:15)
[2025-07-09] MEDS ORDERED: normal saline 1000ml 1,000 ML IV SCH (10:15)
[2025-07-09] MEDS ORDERED: MIDAZolam 1mg/ml 10ml vial IV ONE (10:15)
[2025-07-09] MEDS ORDERED: FURO40TA4 PO (10:23)
[2025-07-09] MEDS ORDERED: FERR324T23 PO (10:23)
[2025-07-09] MEDS ORDERED: POTA8CAP20 PO (10:23)
[2025-07-09] MEDS ORDERED: ozempic SQ (10:25)
[2025-07-09] MEDS ORDERED: OXCA150T14 PO (10:25)
[2025-07-09 10:35] LABS: MEAN PLATELET VOLUME 8.1 FL (7.4-10.4); RED CELL DISTRIBUTION WIDTH 16.6 % (11.5-14.5)
[2025-07-09] MEDS ORDERED: amiodarone/D5 360MG/200ML BAG 200 ML IV ONE (10:45)
[2025-07-09 10:47] LABS: CREATININE 2.10 MG/DL (0.60-1.10); INR 1.1 INR; TOTAL CARBON DIOXIDE 32.6 MMOL/L (24-32); eCRCL 26 ML/MIN; eGFR 30 ML/MIN
[2025-07-09 11:15] VITALS: BP 78/40; PULSE 13; RESP 13; O2SAT 93
[2025-07-09] MEDS ORDERED: AMIO200T76 PO (11:23)
[2025-07-09 11:25] VITALS: BP 77/44; PULSE 73; RESP 13; O2SAT 93
[2025-07-09 11:30] VITALS: BP 84/44; PULSE 67; RESP 12; O2SAT 97
[2025-07-09 11:45] VITALS: BP 107/67; PULSE 67; RESP 11; O2SAT 95
--- NOTE | 2025-07-09 11:58 | ELECTROCARDIOGRAPH REPORT ---
[facility] Test Date: 2025-07-09 Test Time: 11:54:42 Pat Name: DOYLE VELASCO Department: [facility] Patient ID: [id number] Room: Gender: M Skin Former: JUAN R : 1945 Requested By: LUIS PATTERSON Order Number: [id number] Reading MD: Dr. COLLEEN Coleman Measurements Intervals [place] Rate: 67 P: 43 IA: 216 QRS: 21 QRSD: 87 T: 0 QT: 477 QTc: 504 Interpretive Statements Sinus rhythm Ventricular premature complex Borderline prolonged IA interval Low voltage, extremity and precordial leads Nonspecific T abnormalities, lateral leads Prolonged QT interval Electronically Signed On 07-09-2025 15:43:[address] COLLEEN Coleman Please click the below link to view image of tracing.
[2025-07-09 12:00] VITALS: BP 103/73; PULSE 67; RESP 14; O2SAT 94
--- NOTE | 2025-07-13 11:29 | CARDIOLOGY REPORT ---
DATE OF SERVICE: 07/09/2025 DICTATING PHYSICIAN: LUIS PATTERSON DO PROCEDURE: DC cardioversion. PREPROCEDURAL DIAGNOSIS: Atrial fibrillation. POSTPROCEDURAL DIAGNOSIS: Atrial fibrillation, cardioverted to sinus rhythm. DESCRIPTION OF PROCEDURE: The patient was sedated with fentanyl and Versed. He was then given one 300 joules synchronized shock resulting in reversion to sinus rhythm. COMPLICATIONS: There were no complications. PLAN: Ongoing medical therapy. FINAL DIAGNOSIS: Atrial fibrillation, cardioverted to sinus rhythm. LUIS PATTERSON DO TID: [id number] RECEIPT: [id number]/[id number]
== END 2025-07-09 12:10 | disposition home or self-care (01) ==
LOC: SSTAY O 09:45
PROVIDERS: ATTEND Internal Medicine Cardiovascular Disease
DX: I48.0 Paroxysmal atrial fibrillation (principal); I49.3 Ventricular premature depolarization; R94.31 Abnormal electrocardiogram [ECG] [EKG]; G47.30 Sleep apnea, unspecified; N18.9 Chronic kidney disease, unspecified; Z86.73 Personal history of transient ischemic attack (TIA), and cerebral infarction without residual deficits; Z79.01 Long term (current) use of anticoagulants
CPT/HCPCS: 36415; 80048; 83735; 85025; 85610; 92960; 93005; A4620; J0282; J2250; J3010; J7030; Z7610; 99152; J0461